=== PATIENT | male | born 1950 | race Caucasian/White ===

== ENCOUNTER 2024-04-12 08:31 | Outpatient (CLI) | payer MEDICARE, BC, SELFPAY | END 2024-04-12 08:32 | disposition home or self-care (01) | PROVIDERS: PCP Family Medicine; Visit Provider Family Medicine | DX: M54.16 Radiculopathy, lumbar region (principal); M51.36 Other intervertebral disc degeneration, lumbar region; M51.26 Other intervertebral disc displacement, lumbar region | CPT/HCPCS: 64483; 64484; J1100; Q9966 ==

== ENCOUNTER 2025-03-07 10:56 | Outpatient (CLI) | payer MEDICARE, BC, SELFPAY ==
--- NOTE | 2025-03-07 11:00 | CRLHL7_ITS ---
For Patients: As a result of the 21st Century Cures Act, medical imaging exams and procedure reports are released immediately into your electronic medical record. You may view this report before your referring provider. If you have questions, please contact your health care provider. EXAM: NM PARATHYROID SCAN WITH SPECT-CT CLINICAL INFORMATION: 74-year-old man with concern for primary hyperparathyroidism, referred for localization of parathyroid adenoma. TECHNIQUE: 28.9 mCi of Tc-99m sestamibi was administered intravenously. Anterior/oblique planar images of the neck and upper thorax were obtained at 10 minutes (early); Anterior/oblique/posterior planar images were obtained at 90 minutes. Anterior planar images obtained at 3 hours (delayed). COMPARISON: None FINDINGS: Early images demonstrate uniform radiotracer uptake by the thyroid gland with near-complete washout on the delayed images. No focal uptake on delayed images. Normal physiological tracer uptake in the myocardium, salivary glands, and thyroid gland. IMPRESSION: No evidence to support a parathyroid adenoma. Dictated by Markie Miguel MD @ 03/07/2025 9:56:27 PM (Electronically Signed)
== END 2025-03-07 10:57 | disposition home or self-care (01) ==
PROVIDERS: PCP Family Medicine; Visit Provider Student in an Organized Health Care Education/Training Program
DX: E21.0 Primary hyperparathyroidism (principal)
CPT/HCPCS: 78070; A9500